=== PATIENT | female | born 1990 | race Hispanic/Latino ===

== ENCOUNTER 2019-02-12 20:21 | Emergency (ER) | payer MEDICAID ==
[2019-02-12 20:27] VITALS: BMI 24.7
[2019-02-12 20:43] VITALS: O2SAT 100
[2019-02-12] MEDS ORDERED: Sodium Chloride 0.9% 1,000 ML IV STA ×2 (20:48→20:53)
[2019-02-12 21:06] LABS: BASO # 0.02 K/mm3 (0.0-2.0); BASO % 0.2 % (0.0-3.0); EOS % 0.2 % (1.5-5.0); HEMOGLOBIN 13.6 g/dL (12.0-16.0); LYMPH # 0.8 (1.2-3.4); LYMPH % 6.8 % (22.0-35.0); MEAN CELL VOLUME 79.6 fl (80.0-105.0); MEAN CORPUSCULAR HEMOGLOBIN 26.2 pg (25.0-35.0); MEAN CORPUSCULAR HGB CONC 32.9 g/dl (31.0-37.0); MEAN PLATELET VOLUME 9.2 fl (7.0-11.0); MONO # 0.4 (0.1-0.6); MONO % 3.1 % (1.0-6.0); RBC 5.2 10^6/uL (3.5-6.1); RED CELL DISTRIBUTION WIDTH 13.5 % (11.5-14.5); WHITE BLOOD COUNT 11.3 10^3/uL (4.5-11.0)
[2019-02-12 21:10] LABS: URINE BILIRUBIN NEGATIVE (NEGATIVE); URINE BLOOD LARGE (NEGATIVE); URINE GLUCOSE (UA) NEGATIVE (NEGATIVE); URINE LEUKOCYTE ESTERASE TRACE Leu/uL (NEGATIVE); URINE PROTEIN TRACE mg/dL (<30 mg/dL); URINE UROBILINOGEN 0.2 E.U./dL (<1 E.U./dL)
[2019-02-12 21:12] LABS: URINE APPEARANCE SLIGHT-CLOUDY (CLEAR); URINE COLOR YELLOW (YELLOW)
[2019-02-12 21:15] LABS: INR 1.01; PARTIAL THROMBOPLASTIN TIME 31.2 Seconds (26.9-38.3); PROTHROMBIN TIME 11.2 SECONDS (9.4-12.5)
[2019-02-12 21:17] LABS: ALBUMIN 4.2 g/dL (3.0-4.8); ALT/SGPT 87 U/L (7-56); AMYLASE 98 U/L (35-125); AST/SGOT 152 U/L (14-36); BLOOD UREA NITROGEN 17 mg/dL (7-21); GFR NON-AFRICAN AMERICAN > 60; LIPASE 83 U/L (23-300); URINE BACTERIA SMALL /hpf; URINE WBC 0 - 2 /hpf (0-6)
[2019-02-12 21:34] LABS: TROPONIN I < 0.01 ng/mL
[2019-02-12] MEDS ORDERED: Iohexol 350 MG/100 ML VIAL ONE (22:38)
--- NOTE | 2019-02-12 23:12 | ED PDOC ---
Arrival/HPI - General Chief Complaint: GI Problem Time Seen by Provider: 02/12/19 20:26 Historian: Patient - History of Present Illness Narrative History of Present Illness (Text): 02/12/19 23:09 28 year old female, with past medical history of a cholecystectomy at age of 10, presents to emergency department for 1 day history of non-bloody, bilious vomiting and epigastric pain. Patient states that this morning, she developed a suboccipital headache that induced constant vomiting. She notes that she used an ice pack which resolved her pain, but her vomiting persisted. She reports that she can't quantify how many times she vomited, but that there was associated epigastric pain. She describes her pain to be non-radiating and that it feels like a tightness in her lower chest. Patient denies any shortness of breath, palpitations, urinary symptoms, recent travel, or sick contact. Time/Duration: Other (1 day) Symptom Onset: Gradual Symptom Course: Unchanged Activities at Onset: Light Context: Home Past Medical History - Provider Review Nursing Documentation Reviewed: Yes - Musculoskeletal/Rheumatological Hx Falls: No - Gastrointestinal Hx Gall Bladder Disease: Yes (removed at 10 yr old) - Psychiatric Hx Depression: No Hx Emotional Abuse: No Hx Physical Abuse: No Hx Substance Use: No - Surgical History Hx Section: No Hx Cholecystectomy: Yes - Anesthesia Hx Anesthesia: Yes Hx Anesthesia Reactions: No Hx Malignant Hyperthermia: No - Suicidal Assessment Feels Threatened In Home Enviroment: No Family/Social History - Physician Review Nursing Documentation Reviewed: Yes Family/Social History: Unknown Family HX Smoking Status: Never Smoked Hx Alcohol Use: No Hx Substance Use: No Hx Substance Use Treatment: No Allergies/Home Meds Allergies/Adverse Reactions: Allergies No Known Allergies Allergy (Verified 02/12/19 20:27) Home Medications: Home Meds Medication Instructions Recorded Confirmed Control 02/12/19 Review of Systems - Physician Review All systems were reviewed & negative as marked: Yes - Review of Systems Constitutional: absent: Fevers Respiratory: absent: SOB, Cough Cardiovascular: Chest Pain (tightness in lower chest, non-radiating ) Gastrointestinal: Abdominal Pain (epigastric region), Vomiting (non-bloody, bilious, constant vomiting ). absent: Diarrhea Genitourinary Female: absent: Frequency, Hematuria, Urine Output Changes Musculoskeletal: absent: Back Pain, Neck Pain Skin: absent: Rash Neurological: Headache (suboccipital ) Physical Exam Vital Signs Reviewed: Yes Vital Signs Pulse Resp BP BP Pulse Ox 02/12/19 22:13 95 H 16 125/73 100 02/12/19 20:44 114/62 02/12/19 20:21 106 H 20 114/62 100 Temperature: Afebrile Blood Pressure: Normal Pulse: Regular Respiratory Rate: Normal Appearance: Positive for: Well-Appearing, Non-Toxic, Comfortable Pain Distress: None Mental Status: Positive for: Alert and Oriented X 3 - Systems Exam Head: Present: Atraumatic, Normocephalic Pupils: Present: PERRL Extroacular Muscles: Present: EOMI Conjunctiva: Present: Normal Mouth: Present: Moist Mucous Membranes Neck: Present: Normal Range of Motion Respiratory/Chest: Present: Clear to Auscultation, Good Air Exchange. No: Respiratory Distress, Accessory Muscle Use Cardiovascular: Present: Regular Rate and Rhythm, Normal S1, S2. No: Murmurs Abdomen: Present: Tenderness (tenderness to palpation in epigastric region). No: Rebound, Guarding Back: Present: Normal Inspection Upper Extremity: Present: Normal Inspection. No: Cyanosis, Edema Lower Extremity: Present: Normal Inspection. No: Edema Neurological: Present: GCS=15, CN II-XII Intact, Speech Normal Skin: Present: Warm, Dry, Normal Color. No: Rashes Psychiatric: Present: Alert, Oriented x 3, Normal Insight, Normal Concentration Medical Decision Making ED Course and Treatment: 02/12/19 23:18 Impression: 28 year old female presents to emergency department for history of 1 day history of non-bloody, bilious, constant vomiting associated with non-radiating tightness in lower chest and epigastric pain. Plan: -- CT abdomen/pelvis -- EKG -- Labs -- Urinalysis -- Reassess and disposition Prior Visits: Notes and results from previous visits were reviewed. Progress Notes: 02/13/19 00:10 CT Abdomen/pelvis, reviewed by radiologist: IMPRESSION: 1. Evidence of gastritis, duodenitis, diffuse enterocolitis. 2. Status post cholecystectomy. 3. Incidental note is made of a tampon within the vaginal canal. Electronically signed on Feb 13, 2019 12:10:54 AM EDT by: Luigi Patel M.D., MAGALIE Certified By [facility] Fellowship Trained MRI and CT Specialist - Lab Interpretations Lab Results: PT 11.2 SECONDS (9.4-12.5) 02/12/19 20:50 INR 1.01 02/12/19 20:50 APTT 31.2 Seconds (26.9-38.3) 02/12/19 20:50 Troponin I < 0.01 ng/mL 02/12/19 20:50 Total Bilirubin 0.6 mg/dL (0.2-1.3) 02/12/19 20:50 AST 152 U/L (14-36) H 02/12/19 20:50 ALT 87 U/L (7-56) H 02/12/19 20:50 Alkaline Phosphatase 80 U/L (38-126) 02/12/19 20:50 Total Protein 8.4 g/dL (5.8-8.3) H 02/12/19 20:50 Albumin 4.2 g/dL (3.0-4.8) 02/12/19 20:50 Globulin 4.2 gm/dL 02/12/19 20:50 Albumin/Globulin Ratio 1.0 (1.1-1.8) L 02/12/19 20:50 Amylase 98 U/L (35-125) 02/12/19 20:50 Lipase 83 U/L (23-300) 02/12/19 20:50 Urine Color Yellow (YELLOW) 02/12/19 20:50 Urine Appearance Slight-cloudy (CLEAR) 02/12/19 20:50 Urine pH 6.0 (4.7-8.0) 02/12/19 20:50 Ur Specific Ava >= 1.030 (1.005-1.035) 02/12/19 20:50 Urine Protein Trace mg/dL (<30 mg/dL) H 02/12/19 20:50 Urine Glucose (UA) Negative mg/dL (NEGATIVE) 02/12/19 20:50 Urine Ketones Negative mg/dL (NEGATIVE) 02/12/19 20:50 Urine Blood Large (NEGATIVE) H 02/12/19 20:50 Urine Nitrate Negative (NEGATIVE) 02/12/19 20:50 Urine Bilirubin Negative (NEGATIVE) 02/12/19 20:50 Urine Urobilinogen 0.2 E.U./dL (<1 E.U./dL) 02/12/19 20:50 Ur Leukocyte Esterase Trace Obdulia/uL (NEGATIVE) H 02/12/19 20:50 Urine RBC 2 - 5 /hpf (0-2) H 02/12/19 20:50 Urine WBC 0 - 2 /hpf (0-6) 02/12/19 20:50 Ur Epithelial Cells 1 - 3 /hpf (0-5) 02/12/19 20:50 Urine Bacteria Small /hpf (NONE) 02/12/19 20:50 - RAD Interpretation Radiology Orders: 02/12/19 22:05 ABD & PELVIS IV CONTRAST ONLY [CT] Stat - EKG Interpretation EKG Interpretation (Text): 02/13/19 05:56 sinus tachycardia 110 no acute changes - Medication Orders Current Medication Orders: Discontinued Medications Sodium Chloride (Sodium Chloride 0.9%) 1,000 mls @ 100 mls/hr IV .Q10H STA Stop: 02/13/19 06:47 Sodium Chloride (Sodium Chloride 0.9%) 1,000 mls @ 1,000 mls/hr IV .Q1H STA Stop: 02/12/19 21:47 Last Admin: 02/12/19 21:06 Dose: 1,000 mls/hr eMAR Start Stop Document 02/12/19 21:06 KV (Rec: 02/12/19 21:06 KV [id number]) Intravenous Solution Start Date 02/12/19 Start Time 21:06 Ondansetron HCl (Zofran Inj) 4 mg IVP STAT STA Stop: 02/12/19 20:49 Last Admin: 02/12/19 21:06 Dose: 4 mg IVP Administration Document 02/12/19 21:06 KV (Rec: 02/12/19 21:06 KV [id number]) Charges for Administration # of IVP Administrations 1 Pantoprazole Sodium (Protonix Inj) 40 mg IVP ONCE STA Stop: 02/12/19 21:09 Last Admin: 02/12/19 21:25 Dose: 40 mg IVP Administration Document 02/12/19 21:25 KV (Rec: 02/12/19 21:25 KV [id number]) Charges for Administration # of IVP Administrations 1 - Scribe Statement The provider has reviewed the documentation as recorded by the Scribe Jermain Johnson All medical record entries made by the Scribe were at my direction and personally dictated by me. I have reviewed the chart and agree that the record accurately reflects my personal performance of the history, physical exam, medical decision making, and the department course for this patient. I have also personally directed, reviewed, and agree with the discharge instructions and disposition. Disposition/Present on Arrival - Present on Arrival Any Indicators Present on Arrival: No History of DVT/PE: No History of Uncontrolled Diabetes: No Urinary Catheter: No History of Decub. Ulcer: No History Surgical Site Infection Following: None - Disposition Have Diagnosis and Disposition been Completed?: Yes Diagnosis: Gastritis and duodenitis Disposition: HOME/ ROUTINE Disposition Time: 00:40 Condition: IMPROVED Discharge Instructions (ExitCare): Gastritis (DC) Prescriptions: Pantoprazole Sodium [Protonix] 40 mg PO DAILY #14 ect Ondansetron ODT [Zofran ODT] 4 mg PO TID #12 odt Referrals: FAMILY PROVIDER,NO [Primary Care Provider] - Follow up with primary Forms: [employer] (Yoruba)
[2019-02-13 00:07] VITALS: BP 121/55; PULSE 94; RESP 18
--- NOTE | 2019-02-13 08:52 | CT ---
Date of service: 02/12/2019 PROCEDURE: CT Abdomen and Pelvis with contrast HISTORY: Chest pain, nausea and vomiting. Negative test (concurrent with this examination). COMPARISON: None. TECHNIQUE: Intravenous contrast dose: 95 cc Omnipaque 350. Radiation dose: Total exam DLP = 299.49 mGy-cm. This CT exam was performed using one or more of the following dose reduction techniques: Automated exposure control, adjustment of the mA and/or kV according to patient size, and/or use of iterative reconstruction technique. FINDINGS: LOWER THORAX: Unremarkable. LIVER: Unremarkable. No gross lesion or ductal dilatation. GALLBLADDER AND BILE DUCTS: Status post cholecystectomy. No abnormality is seen in the gallbladder fossa. PANCREAS: Unremarkable. No gross lesion or ductal dilatation. SPLEEN: Unremarkable. ADRENALS: Unremarkable. No mass. KIDNEYS AND URETERS: Unremarkable. No hydronephrosis. No solid mass. VASCULATURE: Unremarkable. No aortic aneurysm. No atherosclerotic calcification or mural plaque present. BOWEL: Constipation without fecal impaction or obstruction. APPENDIX: No abnormalities to suggest acute appendicitis. No right lower quadrant inflammatory processes identified. PERITONEUM: Trace free fluid identified in the pelvis/cul de sac. No free air. LYMPH NODES: Unremarkable. No enlarged lymph nodes. BLADDER: Unremarkable. REPRODUCTIVE: Unilateral, left adnexal cysts. Incidental finding(s): Tampon within the vagina. BONES: No acute fracture. OTHER FINDINGS: None. IMPRESSION: No significant or acute findings to account for/ related to the clinical presentation. Additional benign and/or incidental findings described above. Concordant findings (preliminary report) provided by CITTIO.
--- NOTE | 2019-02-13 10:24 | CARD ---
APPROVED REPORT Date of service: 02/12/2019 EKG Measurement Heart [id number] <Conclusion> Sinus tachycardia Otherwise normal ECG
== END 2019-02-13 00:44 | disposition home or self-care (01) ==
LOC: ED 20:21
DX: K29.70 Gastritis, unspecified, without bleeding (principal); K29.80 Duodenitis without bleeding
CPT/HCPCS: 74177; 80053; 81001; 81025; 82150; 82550; 83615; 83690; 84484; 85025; 85610; 85730; 93005; 96374; 96375; 99285; C9113; J2405; J7030; Q9967

== ENCOUNTER 2019-04-27 12:58 | Emergency (ER) | payer MEDICAID ==
[2019-04-27 13:01] VITALS: BMI 24.7
[2019-04-27 13:36] VITALS: RESP 18; TEMP 99.1
--- NOTE | 2019-04-27 13:54 | ED PDOC ---
Arrival/HPI - General Chief Complaint: Dizziness/Lightheaded Time Seen by Provider: 04/27/19 13:40 Historian: Patient - History of Present Illness Narrative History of Present Illness (Text): 04/27/19 13:53 28 year old F with pmh of cholecystectomy presents with complaining of lightheadedness earlier today at work. Patient reports mild b/l arm numbness and hand tingling but associates symptoms to feeling overwhelmed and anxious at work. She admits to previously presenting to ER with similar symptoms but no permanent speech or motor problems. Patient also complains of vaginal bleeding [id number]. Denies dysuria, abdominal pain, fever or headache. Time/Duration: Prior to Arrival Symptom Onset: Sudden Symptom Course: Unchanged Context: Work Past Medical History - Provider Review Nursing Documentation Reviewed: Yes Primary Care Provider: Flakito Agarwal - Musculoskeletal/Rheumatological Hx Falls: No - Gastrointestinal Hx Gall Bladder Disease: Yes (removed at 10 yr old) - Psychiatric Hx Depression: No Hx Emotional Abuse: No Hx Physical Abuse: No Hx Substance Use: No - Surgical History Hx Section: No Hx Cholecystectomy: Yes - Anesthesia Hx Anesthesia: Yes Hx Anesthesia Reactions: No Hx Malignant Hyperthermia: No - Suicidal Assessment Feels Threatened In Home Enviroment: No Family/Social History - Physician Review Nursing Documentation Reviewed: Yes Family/Social History: Unknown Family HX Smoking Status: Never Smoked Hx Alcohol Use: No Hx Substance Use: No Hx Substance Use Treatment: No Allergies/Home Meds Allergies/Adverse Reactions: Allergies No Known Allergies Allergy (Verified 04/27/19 13:36) Home Medications: Home Meds Medication Instructions Recorded Confirmed Control 02/12/19 Review of Systems - Physician Review All systems were reviewed & negative as marked: Yes - Review of Systems Gastrointestinal: absent: Abdominal Pain, Vomiting Physical Exam - Physical Exam Narrative Physical Exam (Text): 04/27/19 14:14 Constitutional: No acute distress. Head: Normocephalic. Atraumatic. Eyes: PERRL. ENT: Moist mucous membranes. Neck: Supple. Cardiovascular: Regular rate. Chest: No tenderness. Respiratory: Clear to auscultation bilaterally. GI: Soft. Nontender. Nondistended. Back: No CVA tenderness. Musculoskeletal: No tenderness or swelling of extremities. Skin: No rash. Neurologic: Alert, no focal deficit. Vital Signs Reviewed: Yes Vital Signs Temp Pulse Resp BP Pulse Ox 04/27/19 13:30 99.1 F 77 18 102/70 98 Temperature: Afebrile Blood Pressure: Normal Pulse: Regular Respiratory Rate: Normal Appearance: Positive for: Well-Appearing, Non-Toxic, Comfortable Pain Distress: None Mental Status: Positive for: Alert and Oriented X 3 Medical Decision Making ED Course and Treatment: 04/27/19 14:11 Impression: 28 year old F presents with complaining of lightheadedness earlier today at work Plan: -- Transvaginal US -- HCG -- Urine culture -- Urinalysis -- Labs 04/27/19 15:35 Transvaginal US --Unremarkable appearing endometrium although the uterus is mildly enlarged. No myometrialmass identified. --5.1 cm right adnexal complex cyst possibly reporesenting a paraovarian cyst, appearing separate from the right ovary. Left adnexal compartment unremarkable. Numbness symptoms consistent with hyperventilation which is now resolved. Has [facility] appointment tomorrow, given copy of report to bring with her. - Scribe Statement The provider has reviewed the documentation as recorded by the Prem Nguyen All medical record entries made by the Mariibrobe were at my direction and personally dictated by me. I have reviewed the chart and agree that the record accurately reflects my personal performance of the history, physical exam, medical decision making, and the department course for this patient. I have also personally directed, reviewed, and agree with the discharge instructions and disposition. Disposition/Present on Arrival - Present on Arrival Any Indicators Present on Arrival: No History of DVT/PE: No History of Uncontrolled Diabetes: No Urinary Catheter: No History of Decub. Ulcer: No History Surgical Site Infection Following: None - Disposition Have Diagnosis and Disposition been Completed?: Yes Diagnosis: Hyperventilation, Vaginal bleeding Disposition: HOME/ ROUTINE Disposition Time: 16:12 Patient Plan: Discharge Condition: GOOD Discharge Instructions (ExitCare): Hyperventilation, Heavy Periods Additional Instructions: FINDINGS: UTERUS: Measures 9.1 x 4.8 x 6.4 cm. Normal in size and appearance. No fibroid or other mass lesion seen. ENDOMETRIUM: Measures 0.8 mm in diameter. Unremarkable. CERVIX: No cervical abnormality identified. RIGHT OVARY: Measures 2.6 x 1.2 x 3.4 cm. No solid mass. Normal flow. Also seen in the right adnexal compartment is a septated cyst measuring 4.8 x 2.8 x 5.1 cm possibly representing a paraovarian inclusion cyst though this is uncertain whether the patient had prior surgery in the abdomen or pelvis in the past. No additional right adnexal findings. LEFT OVARY: Measures 2.6 x 1.7 x 3.0 cm. No solid mass. Normal flow. FREE FLUID: No significant free fluid noted. OTHER FINDINGS: None. IMPRESSION: Unremarkable appearing endometrium although the uterus is mildly enlarged. No myometrial mass identified. 5.1 cm right adnexal complex cyst possibly representing a paraovarian cyst, appearing separate from the right ovary. Left adnexal compartment unremarkable. Referrals: Flakito Agarwal MD [Primary Care Provider] - Follow up with primary Forms: [employer] (Upper Sorbian)
[2019-04-27 14:17] LABS: URINE BILIRUBIN NEGATIVE (NEGATIVE); URINE BLOOD LARGE (NEGATIVE); URINE GLUCOSE (UA) NEGATIVE (NEGATIVE); URINE LEUKOCYTE ESTERASE SMALL Leu/uL (NEGATIVE); URINE PROTEIN NEGATIVE mg/dL (<30 mg/dL); URINE UROBILINOGEN 0.2 E.U./dL (<1 E.U./dL)
[2019-04-27 14:18] LABS: URINE COLOR LIGHT YELLOW (YELLOW)
[2019-04-27 14:19] LABS: URINE APPEARANCE SLIGHT-CLOUDY (CLEAR)
[2019-04-27 14:21] LABS: HCG,QUALITATIVE URINE NEGATIVE (NEGATIVE)
[2019-04-27 14:24] LABS: URINE BACTERIA MANY /hpf; URINE RBC 25 - 30 /hpf (0-2)
--- NOTE | 2019-04-27 14:50 | US ---
Date of service: 04/27/2019 HISTORY: vag bleeding COMPARISON: None available. TECHNIQUE: Transabdominal and transvaginal pelvic ultrasound was performed with longitudinal and transverse images submitted for interpretation. FINDINGS: UTERUS: Measures 9.1 x 4.8 x 6.4 cm. Normal in size and appearance. No fibroid or other mass lesion seen. ENDOMETRIUM: Measures 0.8 mm in diameter. Unremarkable. CERVIX: No cervical abnormality identified. RIGHT OVARY: Measures 2.6 x 1.2 x 3.4 cm. No solid mass. Normal flow. Also seen in the right adnexal compartment is a septated cyst measuring 4.8 x 2.8 x 5.1 cm possibly representing a paraovarian inclusion cyst though this is uncertain whether the patient had prior surgery in the abdomen or pelvis in the past. No additional right adnexal findings. LEFT OVARY: Measures 2.6 x 1.7 x 3.0 cm. No solid mass. Normal flow. FREE FLUID: No significant free fluid noted. OTHER FINDINGS: None. IMPRESSION: Unremarkable appearing endometrium although the uterus is mildly enlarged. No myometrial mass identified. 5.1 cm right adnexal complex cyst possibly representing a paraovarian cyst, appearing separate from the right ovary. Left adnexal compartment unremarkable.
[2019-04-27 14:55] LABS: BASO # 0.04 K/mm3 (0.0-2.0); BASO % 0.4 % (0.0-3.0); EOS # 0.1 (0.0-0.7); EOS % 1.1 % (1.5-5.0); HEMOGLOBIN 12.1 g/dL (12.0-16.0); LYMPH # 1.9 (1.2-3.4); LYMPH % 20.9 % (22.0-35.0); MEAN CELL VOLUME 79.9 fl (80.0-105.0); MEAN CORPUSCULAR HEMOGLOBIN 25.9 pg (25.0-35.0); MEAN CORPUSCULAR HGB CONC 32.4 g/dl (31.0-37.0); MEAN PLATELET VOLUME 9.2 fl (7.0-11.0); MONO # 0.5 (0.1-0.6); MONO % 5.7 % (1.0-6.0); RBC 4.67 10^6/uL (3.5-6.1); WHITE BLOOD COUNT 9.1 10^3/uL (4.5-11.0)
[2019-04-27 15:05] LABS: ALB/GLOB RATIO 1.2 (1.1-1.8); ALBUMIN 4.7 g/dL (3.0-4.8); ALT/SGPT 14 U/L (7-56); AST/SGOT 27 U/L (14-36); BLOOD UREA NITROGEN 14 mg/dL (7-21); CALCIUM 9.6 mg/dL (8.4-10.5); GFR NON-AFRICAN AMERICAN > 60; LIPASE 136 U/L (23-300)
[2019-04-27 15:09] VITALS: BP 104/68; PULSE 72; O2SAT 100
== END 2019-04-27 16:14 | disposition home or self-care (01) ==
LOC: ED 12:58
DX: R06.4 Hyperventilation (principal); N93.9 Abnormal uterine and vaginal bleeding, unspecified; Z90.49 Acquired absence of other specified parts of digestive tract